=== PATIENT | male | born 1975 | race Caucasian/White ===

== ENCOUNTER 2018-05-31 11:07 | Emergency (ER) | payer OTHER ==
[2018-05-31] MEDS ORDERED: Sodium Chloride 0.9% 1000 ML 1,000 ML IV STA (11:34)
--- NOTE | 2018-05-31 11:40 | ERPHSYRPT ---
- History of Present Illness Time Seen by Provider: 05/31/18 11:36 Source: patient Patient Subjective Stated Complaint: abscess on left upper medial back of leg Triage Nursing Assessment: Pt c/o of an abscess on left upper medial thigh that began over a year ago but has now become larger and more painful, hx of abscesses, no drainage, has been taking antibiotics for past 3 months, BP 179/ 130, afebrile, denies any other issues at this time Physician History: 3 day hx sts left medial thigh mild tender, occasional drainage, no fever, ambulatory, hx 60 lb wt loss since November, no hx injury Allergies/Adverse Reactions: No Known Drug Allergies Allergy (Verified 05/31/18 11:29) Hx Tetanus, Diphtheria Vaccination/Date Given: No (unsure) - Review of Systems Constitutional: No Fever Eyes: No Eye Redness Ears, Nose, & Throat: No Nose Congestion Respiratory: No Dyspnea Cardiac: No Chest Pain Abdominal/Gastrointestinal: No Abdominal Pain, No Vomiting Genitourinary Symptoms: No Dysuria Musculoskeletal: No Back Pain Skin: Skin Lesions Neurological: No Dizziness - Past Medical History Pertinent Past Medical History: Yes Cardiac History: Hypertension - Past Surgical History Past Surgical History: No - Social History Smoking Status: Current every day smoker How long have you smoked: 10 years Drug Use: none Patient Lives Alone: No - Nursing Vital Signs Nursing Vital Signs: Initial Vital Signs Temperature 98.2 F 05/31/18 11:14 Pulse Rate 98 H 05/31/18 11:14 Blood Pressure 179/130 05/31/18 11:14 O2 Sat by Pulse Oximetry 97 05/31/18 11:14 Pain Scale Pain Intensity 7 - Physical Exam General Appearance: no apparent distress Eye Exam: eyes nml inspection Ears, Nose, Throat Exam: moist mucous membranes Neck Exam: normal inspection Respiratory Exam: No respiratory distress Cardiovascular Exam: regular rate/rhythm Gastrointestinal/Abdomen Exam: No tenderness Back Exam: normal range of motion Neurologic Exam: alert, oriented x 3, cooperative Skin Exam: warm, other (about 3cm sts medial prox left thigh, +fluc mass, no streaks, no drainage) SpO2 Interpretation: normal SpO2: 97 Oxygen Delivery: Room Air Procedures - Additional Procedures Progress: sterile prep, 1% local lidocaine, #11 blade to incise 3mm to drain 4cc pus by blunt dissection, dressing. - Course Nursing assessment & vital signs reviewed: Yes Ordered Tests: Active Orders 24 hr Category Date Time Status IV Insertion STAT Care 05/31/18 11:34 Active Nursing [Miscellaneous Nursing Order] ROUTINE Care 05/31/18 11:40 Active CBC W DIFF Stat Lab 05/31/18 11:47 Completed CMP Stat Lab 05/31/18 11:47 Completed Medication Summary Discontinued Medications Generic Name Dose Route Start Last Admin Trade Name Flavio PRN Reason Stop Dose Admin Clonidine 0.1 mg 05/31/18 12:04 05/31/18 12:11 Catapres 0.1 Mg PO 05/31/18 12:05 0.1 mg STAT ONE Administration Clonidine Confirm 05/31/18 12:09 Catapres 0.1 Mg Administered 05/31/18 12:10 Dose 0.1 mg .ROUTE .STK-MED ONE Sodium Chloride 1,000 mls @ 999 mls/hr 05/31/18 11:34 05/31/18 13:16 Sodium Chloride 0.9% 1000 Ml IV 05/31/18 12:34 Infused .Q1H1M STA Infusion Sodium Chloride Confirm 05/31/18 11:45 Sodium Chloride 0.9% 1000 Ml Administered 05/31/18 11:46 Dose 1,000 mls @ ud .ROUTE .STK-MED ONE Lidocaine HCl 10 ml 05/31/18 12:13 05/31/18 12:32 Xylocaine 1% Hcl 20 Ml Mdv IJ 05/31/18 12:14 10 ml STAT ONE Administration Lidocaine HCl Confirm 05/31/18 12:15 Xylocaine 1% Hcl 20 Ml Mdv Administered 05/31/18 12:16 Dose 1 ml .ROUTE .STK-MED ONE Trimethoprim/Sulfamethoxazole 1 tab 05/31/18 13:34 Bactrim Ds Tablet PO 05/31/18 13:35 STAT STA Lab/Rad Data: Laboratory Result Diagrams 05/31/18 11:47 05/31/18 11:47 Laboratory Results 05/31/18 05/31/18 Range/Units 11:47 11:47 WBC 8.3 (4.0-10.5) K/mm3 RBC 5.53 (4.1-5.6) M/mm3 Hgb 18.1 H (12.5-18.0) gm/dl Hct 51.7 H (42-50) % MCV 93.5 (78-100) fl MCH 32.7 H (26-32) pg MCHC 35.0 (32-36) g/dl RDW 13.0 (11.5-14.0) % Plt Count 222 (150-450) K/mm3 MPV 10.9 H (6-9.5) fl Gran % 59.3 (36.0-66.0) % Eos # (Auto) 0.10 (0-0.5) Absolute Lymphs (auto) 2.46 (1.0-4.6) Absolute Monos (auto) 0.77 (0.0-1.3) Lymphocytes % 29.8 (24.0-44.0) % Monocytes % 9.3 (0.0-12.0) % Eosinophils % 1.2 (0.00-5.0) % Basophils % 0.4 (0.0-0.4) % Absolute Granulocytes 4.90 (1.4-6.9) Basophils # 0.03 (0-0.4) Sodium 134 L (137-145) mmol/L Potassium 4.2 (3.5-5.1) mmol/L Chloride 99 (98-107) mmol/L Carbon Dioxide 20 L (22-30) mmol/L Anion Gap 18.8 H (5-15) MEQ/L BUN 10 (9-20) mg/dL Creatinine 0.84 (0.66-1.25) mg/dL Estimated GFR > 60.0 ML/MIN Glucose 327 H (74-106) mg/dL Calcium 9.9 (8.4-10.2) mg/dL Total Bilirubin 1.30 (0.2-1.3) mg/dL AST 24 (17-59) U/L ALT 26 (0-50) U/L Alkaline Phosphatase 178 H (38-126) U/L Serum Total Protein 8.7 H (6.3-8.2) g/dL Albumin 4.8 (3.5-5.0) g/dL - Progress Progress: improved Progress Note: 05/31/18 13:39 metformin, catapres, bactrim ds, wound care, see your doctor, return if worse, lisa Counseled pt/family regarding: lab results, diagnosis, need for follow-up - Departure Time of Disposition: 13:40 Departure Disposition: Home Clinical Impression: Hyperglycemia, Abscess Hypertension Qualifiers: Hypertension type: essential hypertension Qualified Code(s): I10 - Essential ( primary) hypertension Condition: Stable Critical Care Time: No Referrals: NOELLE LI [Primary Care Provider] - Instructions: Wound Infection Prescriptions: Clonidine HCl 0.1 mg [Catapres 0.1 MG] 0.1 mg PO DAILY 14 Days #14 tablet Metformin HCl 500 mg [Glucophage 500 MG] 500 mg PO BIDWM #14 tablet Smz/Tmp Ds Tablet [Bactrim Ds Tablet] 1 udtab PO BID #20 tablet
[2018-05-31] MEDS ORDERED: Sodium Chloride 0.9% 1000 ML 1,000 ML ONE (11:45)
[2018-05-31] MEDS ORDERED: Catapres 0.1 MG PO ONE (12:04)
[2018-05-31] MEDS ORDERED: Catapres 0.1 MG ONE (12:09)
[2018-05-31] MEDS ORDERED: XYLOCAINE 1% HCL 20 ML MDV IJ ONE (12:13)
[2018-05-31] MEDS ORDERED: XYLOCAINE 1% HCL 20 ML MDV ONE (12:15)
[2018-05-31 12:27] LABS: ALBUMIN 4.8 g/dL (3.5-5.0); ALKALINE PHOSPHATASE 178 U/L (38-126); ANION GAP 18.8 MEQ/L (5-15); BLOOD UREA NITROGEN 10 mg/dL (9-20); CHLORIDE 99 mmol/L (98-107); Calcium 9.9 mg/dL (8.4-10.2); Carbon Dioxide 20 mmol/L (22-30); Creatinine 1 0.84 mg/dL (0.66-1.25); Glucose 327 mg/dL (74-106); Potassium 4.2 mmol/L (3.5-5.1); SGOT/AST 24 U/L (17-59); SGPT/ALT 26 U/L (0-50); SODIUM 134 mmol/L (137-145); Total Protein 8.7 g/dL (6.3-8.2)
[2018-05-31 13:02] VITALS: BP 153/98; PULSE 89
[2018-05-31 13:20] LABS: BASOPHIL % 0.4 % (0.0-0.4); Basophil (Absolute #) 0.03 (0-0.4); Eosinophil % 1.2 % (0.00-5.0); Granulocytes % 59.3 % (36.0-66.0); Hematocrit 51.7 % (42-50); Hemoglobin 18.1 gm/dl (12.5-18.0); Lymphocyte (Absolute #) 2.46 (1.0-4.6); Lymphocytes % 29.8 % (24.0-44.0); Mean Cell Volume 93.5 fl (78-100); Mean Corpuscular Hemoglobin 32.7 pg (26-32); Mean Platelet Volume 10.9 fl (6-9.5); Monocyte (Absolute #) 0.77 (0.0-1.3); Monocytes % 9.3 % (0.0-12.0); Platelet Count 222 K/mm3 (150-450); Red Blood Count 5.53 M/mm3 (4.1-5.6); White Blood Count 8.3 K/mm3 (4.0-10.5)
[2018-05-31] MEDS ORDERED: BACTRIM DS TABLET PO STA (13:34)
[2018-05-31] MEDS ORDERED: BACTRIM DS TABLET PO ONE (13:38)
[2018-05-31 13:43] VITALS: O2SAT 97
== END 2018-05-31 13:58 | disposition home or self-care (01) ==
LOC: ED 11:07
DX: L02.416 Cutaneous abscess of left lower limb (principal); R73.9 Hyperglycemia, unspecified; I10 Essential (primary) hypertension
CPT/HCPCS: 10060; 36000; 36415; 80053; 85025; 96360; 96372; 99284; A9270-GY

== ENCOUNTER 2019-01-30 22:06 | Emergency (ER) | payer OTHER ==
[2019-01-30] MEDS ORDERED: EPINEPHRINE 1MG/ML AMP IM ONE (22:37)
[2019-01-30] MEDS ORDERED: solu-MEDROL 125 MG IV ONE (22:38)
[2019-01-30] MEDS ORDERED: solu-MEDROL 125 MG ONE (22:39)
[2019-01-30] MEDS ORDERED: EPINEPHRINE 1MG/ML AMP ONE (22:39)
--- NOTE | 2019-01-30 22:55 | ERPHSYRPT ---
- History of Present Illness Time Seen by Provider: 01/30/19 22:50 Source: patient Exam Limitations: no limitations Patient Subjective Stated Complaint: PT STATES HE HAD SUDDEN ONSET OF FACIAL SWELLING, TONGUE SWELLING AND REDNESS TO FACE/TORSO/ARMS 15-20 MIN IN [employer]. PT STATES HE HAS BEEN HAVING REOCCURING EPISODES OVER THE PAST FEW MONTHS, HAS NOT FOUND SOURCE OF REACTION, HAS NOT SEEN [employer]. PT STATES HE TOOK 50 MG OF BENADRYL IN [employer] Triage Nursing Assessment: FLUSHED/WARM/DRY, RESP EASY, A&OX4, STEADY GAIT, NO HOARSENESS OR SOB NOTED, PT DENIES DISCOMFORT IN THROAT, SWELLING TO FACE/LIPS, TONGUE, AND EYES NOTED. Physician History: 44-year-old white male coming in arrives with complaint of tongue swelling since approximately 20 minutes prior to arrival. According to patient he has been having intermittent tongue and face swelling off and on for the past 6 months. He apparently has been told not to take Advil secondary to this. He states that this evening at approximately 5:00 he took some Aleve. Then at around 20 minutes prior to arrival he began to have tongue swelling. Patient states that he felt like he was getting some hives on his neck. Is not having shortness of breath at this time. patient did take Benadryl 50 mg orally prior to arrival. Past medical history includes high blood pressure and diabetes mellitus. Past surgical history is negative. Timing/Duration: today (20 minutes prior to arrival) Severity: moderate Associated Symptoms: other (tongue swelling), No nausea, No vomiting, No abdominal pain, No shortness of breath, No heartburn, No diaphoresis, No cough, No chills, No chest pain, No fever, No headaches, No loss of appetite (ice chips ), No malaise, No rash (hives on his neck), No syncope, No seizure, No weakness Allergies/Adverse Reactions: No Known Drug Allergies Allergy (Verified 01/30/19 22:10) Hx Tetanus, Diphtheria Vaccination/Date Given: No (unsure) - Review of Systems Constitutional: No No Symptoms Eyes: No Symptoms Ears, Nose, & Throat: Mouth Swelling (tongue swelling), No Ear Pain, No Ear Discharge, No Hearing Changes, No Tinnitus, No Nose Pain, No Nose Congestion, No Nose Discharge, No Sinus Drainage, No Epistaxis, No Mouth Pain, No Loose Teeth, No Throat Pain, No Throat Swelling, No Hoarse, No Painful Swallowing, No Snoring, No Stridor Respiratory: No Cough, No Dyspnea Cardiac: No Chest Pain, No Edema, No Syncope Abdominal/Gastrointestinal: No Abdominal Pain, No Nausea, No Vomiting, No Diarrhea Genitourinary Symptoms: No Dysuria Musculoskeletal: No Back Pain, No Neck Pain Skin: Rash (hives on neck) Neurological: No Dizziness, No Focal Weakness, No Sensory Changes Psychological: No Symptoms Endocrine: No Symptoms All Other Systems: Reviewed and Negative - Past Medical History Pertinent Past Medical History: Yes Cardiac History: Hypertension Endocrine Medical History: Diabetes Type II - Past Surgical History Past Surgical History: No - Social History Smoking Status: Current every day smoker How long have you smoked: 10 years Exposure to second hand smoke: Yes Drug Use: marijuana Patient Lives Alone: No - Nursing Vital Signs Nursing Vital Signs: Initial Vital Signs Pulse Rate 103 H 01/30/19 22:12 Respiratory Rate 14 01/30/19 22:12 Blood Pressure 196/118 01/30/19 22:12 O2 Sat by Pulse Oximetry 97 01/30/19 22:12 Pain Scale Pain Intensity 0 - Physical Exam General Appearance: mild distress, alert, other (flushed in appearance) Eye Exam: PERRL/EOMI, eyes nml inspection Ears, Nose, Throat Exam: TMs normal, pharynx normal, other (tongue swollen) Neck Exam: normal inspection, non-tender, supple, full range of motion Respiratory Exam: normal breath sounds, lungs clear, No respiratory distress Cardiovascular Exam: regular rate/rhythm, normal heart sounds, normal peripheral pulses, capillary refill <2 sec Gastrointestinal/Abdomen Exam: soft, normal bowel sounds, No tenderness, No mass Back Exam: normal inspection, normal range of motion, No CVA tenderness, No vertebral tenderness Extremity Exam: normal inspection, normal range of motion, pelvis stable Neurologic Exam: alert, oriented x 3, cooperative, windows consultant II-XII nml as tested, normal mood/affect, nml cerebellar function, nml station & gait, sensation nml, No motor deficits Skin Exam: other (skin flushed in appearance) SpO2 Interpretation: normal (97%) SpO2: 97 - Course Nursing assessment & vital signs reviewed: Yes EKG Interpreted by Me: RATE (93 bpm), Sinus Rhythm, NORMAL AXIS (And), Other ( EKG: Sinus rhythm, 93 beats per minute, normal axis, no acute ST or T wave changes noted) Ordered Tests: Active Orders 24 hr Category Date Time Status Accucheck STAT Care 01/31/19 00:48 Active Medication Summary Generic Name Dose Route Start Last Admin Trade Name Flavio PRN Reason Stop Dose Admin Sodium Chloride 1,000 mls @ 100 mls/hr 01/30/19 23:45 01/30/19 23:39 Sodium Chloride 0.9% 1000 Ml IV 03/01/19 23:44 100 mls/hr .Q10H JOHN Administration Discontinued Medications Generic Name Dose Route Start Last Admin Trade Name Shadeq PRN Reason Stop Dose Admin Epinephrine HCl 0.3 mg 01/30/19 22:37 01/30/19 22:40 Epinephrine 1mg/Ml Amp IM 01/30/19 22:38 0.3 mg STAT ONE Administration Epinephrine HCl Confirm 01/30/19 22:39 Epinephrine 1mg/Ml Amp Administered 01/30/19 22:40 Dose 1 mg .ROUTE .STK-MED ONE Famotidine 20 mg 01/30/19 23:04 01/30/19 23:10 Pepcid 20 Mg Vial IV 01/30/19 23:05 20 mg STAT ONE Administration Famotidine Confirm 01/30/19 23:09 Pepcid 20 Mg Vial Administered 01/30/19 23:10 Dose 20 mg IV .STK-MED ONE Methylprednisolone Sodium Succinate 125 mg 01/30/19 22:38 01/30/19 22:40 Solu-Medrol 125 Mg IV 01/30/19 22:39 125 mg STAT ONE Administration Methylprednisolone Sodium Succinate Confirm 01/30/19 22:39 Solu-Medrol 125 Mg Administered 01/30/19 22:40 Dose 125 mg .ROUTE .STK-MED ONE - Progress Progress: improved Progress Note: 01/31/19 00:45 Patient markedly improved after epinephrine and Pepcid. Patient also received Solu-Medrol 125 mg IV. Markedly decreased in the tongue swelling. Patient is somewhat diaphoretic but now will check a Accu-Chek. Will plan on home Benadryl 50 mg orally every 6 hours. Tapering dose of steroids if patient is markedly improved tomorrow he can hold off on steroids (prednisone) Patient advised not to take any more nonsteroidal anti-inflammatory agents. Patient to followup with his family . Patient states he is not on any [place] inhibitors. 01/31/19 01:17 The patient's repeat accucheck is 220 will release. - Departure Departure Disposition: Home Clinical Impression: Allergic reaction Qualifiers: Encounter type: initial encounter Qualified Code(s): T78.40XA - Allergy, unspecified, initial encounter Angioedema Qualifiers: Encounter type: initial encounter Qualified Code(s): T78.3XXA - Angioneurotic edema, initial encounter Condition: Fair Critical Care Time: No Referrals: NOELLE LI [Primary Care Provider] - Additional Instructions: Return home. Benadryl 50 mg orally every 6 hours. Monitor your blood sugars. Tapering dose of prednisone as directed if markedly improved you do not need to start this tomorrow but he must take the Benadryl every 6 hours for 2-3 days. Plenty of fluids. Followup with your family . Do not take any more nonsteroidal anti-inflammatory drugs. Return for any problems or recurrence of symptoms.
[2019-01-30] MEDS ORDERED: Pepcid 20 MG VIAL IV ONE ×2 (23:04→23:09)
[2019-01-30] MEDS ORDERED: Sodium Chloride 0.9% 1000 ML 1,000 ML ONE (23:38)
[2019-01-30] MEDS ORDERED: Sodium Chloride 0.9% 1000 ML 1,000 ML IV SCH (23:45)
[2019-01-31 01:21] VITALS: BP 150/74; PULSE 92; O2SAT 95
== END 2019-01-31 01:41 | disposition home or self-care (01) ==
LOC: ED 22:06
DX: T78.40XA Allergy, unspecified, initial encounter (principal); T78.3XXA Angioneurotic edema, initial encounter
CPT/HCPCS: 36000; 82962; 96360; 96372; 96374; 96375; 99284; J0171; J2930

== ENCOUNTER 2020-06-23 08:20 | Emergency (ER) | payer OTHER ==
[2020-06-23 08:31] VITALS: BP 192/116; PULSE 109; O2SAT 98
[2020-06-23] MEDS ORDERED: PEN-VEE K PO ONE (08:40)
[2020-06-23] MEDS ORDERED: TYLENOL 325 MG PO ONE (08:40)
--- NOTE | 2020-06-23 08:43 | ERPHSYRPT ---
- History of Present Illness Time Seen by Provider: 06/23/20 08:30 Source: patient Exam Limitations: no limitations Patient Subjective Stated Complaint: pt here for tumbness and pain to right jaw for a week now, he is not sure if in is a tooth Triage Nursing Assessment: pt alert, walked in, face mask in place, resp easy, skin w/d/p. Physician History: Patient is a 45-year-old male presents to our ED with complaints of abdominal pain. Pain started approximately 1 week ago. Pain started off as an ache to the maxillary tooth #2. The tooth has excessive motion. Patient has yet to see a dentist. The pain tends to radiate to his cheek. He describes a dull ache at the site of the tooth and a numbness sensation adjacent to his right cheek. No trauma. No fever. No nausea or vomiting. No headache. Pain described as an ache that is localized. No radiation. Symptoms reproduced with percussion to the involved tooth. The adjacent gingiva is red irritated and swollen. Patient voices no other complaints or concerns at this time. Timing/Duration: week(s) (1 week) Severity: moderate Modifying Factors: Improves With: eating Associated Symptoms: No nausea, No vomiting, No chest pain, No syncope Allergies/Adverse Reactions: ibuprofen [From Motrin] Allergy (Verified 06/23/20 08:31) Home Medications: Loratadine 10 mg [Claritin 10 mg] 1 ea DAILY 06/23/20 [History] Hx Tetanus, Diphtheria Vaccination/Date Given: No Hx Influenza Vaccination/Date Given: No Hx Pneumococcal Vaccination/Date Given: No Immunizations Up to Date: Yes Travel Risk - International Travel Have you traveled outside of the country in past 3 weeks: No - Coronavirus Screening Are you exhibiting any of the following symptoms?: No Close contact with a COVID-19 positive Pt in past 14-21 Days: Yes - Review of Systems Constitutional: No Symptoms, No Fever, No Chills Eyes: No Symptoms Ears, Nose, & Throat: No Symptoms Respiratory: No Symptoms, No Cough, No Dyspnea Cardiac: No Symptoms, No Chest Pain, No Edema, No Syncope Abdominal/Gastrointestinal: No Symptoms, No Abdominal Pain, No Nausea, No Vomiting, No Diarrhea Genitourinary Symptoms: No Symptoms, No Dysuria Musculoskeletal: No Symptoms, No Back Pain, No Neck Pain Skin: No Symptoms, No Rash Neurological: No Symptoms, No Dizziness, No Focal Weakness, No Sensory Changes Psychological: No Symptoms Endocrine: No Symptoms Hematologic/Lymphatic: No Symptoms Immunological/Allergic: No Symptoms All Other Systems: Reviewed and Negative - Past Medical History Pertinent Past Medical History: Yes Cardiac History: Hypertension Endocrine Medical History: Diabetes Type II - Past Surgical History Past Surgical History: No - Social History Smoking Status: Current every day smoker How long have you smoked: 10 years Exposure to second hand smoke: Yes Drug Use: marijuana Patient Lives Alone: No - Nursing Vital Signs Nursing Vital Signs: Initial Vital Signs Temperature 97.0 F 06/23/20 08:24 Pulse Rate 109 H 06/23/20 08:24 Respiratory Rate 16 06/23/20 08:24 Blood Pressure 192/116 06/23/20 08:24 O2 Sat by Pulse Oximetry 98 06/23/20 08:24 Pain Scale Pain Intensity 0 - Physical Exam General Appearance: no apparent distress, alert Eye Exam: PERRL/EOMI, eyes nml inspection Ears, Nose, Throat Exam: normal ENT inspection, TMs normal, pharynx normal, moist mucous membranes, other (Tooth #2 is loose. Movement reproduces symptoms. The gingiva adjacent to the tooth is swollen and erythematous. No drainage. No facial swelling. Oropharyngeal exam otherwise within normal limits.) Neck Exam: normal inspection, non-tender, supple, full range of motion Respiratory Exam: normal breath sounds, lungs clear, No respiratory distress Cardiovascular Exam: regular rate/rhythm, normal heart sounds, normal peripheral pulses Gastrointestinal/Abdomen Exam: soft, normal bowel sounds, No tenderness, No mass Back Exam: normal inspection, normal range of motion, No CVA tenderness, No vertebral tenderness Extremity Exam: normal inspection, normal range of motion, pelvis stable Neurologic Exam: alert, oriented x 3, cooperative, normal mood/affect, nml cerebellar function, nml station & gait, sensation nml, No motor deficits Skin Exam: normal color, warm, dry, No rash Lymphatic Exam: No adenopathy SpO2 Interpretation: normal SpO2: 98 O2 Delivery: Room Air - Course Nursing assessment & vital signs reviewed: Yes Ordered Tests: Medication Summary Discontinued Medications Generic Name Dose Route Start Last Admin Trade Name Freq PRN Reason Stop Dose Admin Acetaminophen 975 mg 06/23/20 08:40 Tylenol 325 Mg PO 06/23/20 08:41 STAT ONE Penicillin V Potassium 500 mg 06/23/20 08:40 Pen-Vee K PO 06/23/20 08:41 STAT ONE - Progress Progress: improved Progress Note: 06/23/20 08:48 Patient received pain medication. Antibiotics provided. Prescription for the same was forwarded the patient's pharmacy. Patient given a dentist referral. Plan of care discussed with patient. He agrees to follow-up with his dentist within 48 hours for reevaluation. Patient voices no other complaints concerns at this time. 06/23/20 08:51 Counseled pt/family regarding: diagnosis, need for follow-up - Departure Departure Disposition: Home Clinical Impression: Subluxation of tooth, Pain, dental, Dental abscess Condition: Stable Critical Care Time: No Referrals: NOELLE LI [Primary Care Provider] - Instructions: Dental Pain (DC) Prescriptions: Penicillin V Potassium 500 mg PO QID 7 Days #28 tablet
[2020-06-23] MEDS ORDERED: TYLENOL 325 MG ONE (08:46)
[2020-06-23] MEDS ORDERED: PEN-VEE K ONE ×2 (08:46→08:47)
== END 2020-06-23 08:56 | disposition home or self-care (01) ==
LOC: ED 08:20
DX: S03.2XXA Dislocation of tooth, initial encounter (principal); K08.89 Other specified disorders of teeth and supporting structures; K04.7 Periapical abscess without sinus
CPT/HCPCS: 99283; A9270-GY

== ENCOUNTER 2021-10-31 10:38 | Emergency (ER) | payer OTHER, SELFPAY ==
[2021-10-31] MEDS ORDERED: CORTISPORIN EAR DROPS 10 ML SUSPENSION OT ONE (10:45)
[2021-10-31] MEDS ORDERED: Rocephin 1000 MG INJ IM ONE (10:53)
[2021-10-31] MEDS ORDERED: solu-MEDROL 125 MG, Sterile H2O 10 ml 2 ML IM ONE ×2 (10:54)
[2021-10-31] MEDS ORDERED: Hydromorphone 1 mg/ml Injection IV ONE (10:55)
[2021-10-31] MEDS ORDERED: Rocephin 1000 MG INJ ONE (10:58)
[2021-10-31] MEDS ORDERED: Hydromorphone 1 mg/ml Injection ONE (10:58)
[2021-10-31] MEDS ORDERED: solu-MEDROL ONE (10:58)
[2021-10-31] MEDS ORDERED: XYLOCAINE 1% HCL 20 ML MDV ONE (10:58)
[2021-10-31] MEDS ORDERED: Sterile H2O 10 ml IJ ONE (10:59)
--- NOTE | 2021-10-31 11:01 | ERPHSYRPT ---
- History of Present Illness Time Seen by Provider: 10/31/21 10:55 Source: patient Exam Limitations: no limitations Physician History: Patient is a 46-year-old white male who has a history of previous otitis externa who is been on vacation and had been swimming a lot. He developed pain in the right ear followed by more pain and swelling around the right ear he was when [facility] and diagnosed with a parotid gland infection and started on Augmentin. He has swelling behind the ear and in front of the ear primarily. Pain is been so severe he cannot sleep for 2 nights and he has not responded to 24 hours worth of Augmentin. Timing/Duration: gradual onset, persistent Severity: severe ENT Location: ear (R) Prearrival Treatment: prescription meds (Augmentin 875) Modifying Factors: Improves With: nothing Associated Symptoms: ear pain (R), facial pain/swelling, hearing loss, swollen glands Allergies/Adverse Reactions: ibuprofen [From Motrin] Allergy (Verified 06/23/20 08:31) Home Medications: Loratadine 10 mg [Claritin 10 mg] 1 ea DAILY 06/23/20 [History] Benazepril HCl 10 mg [Lotensin 10 MG] 10 mg PO DAILY 10/31/21 [History] Simvastatin 10 mg [Zocor 10MG] 10 mg PO DAILY 10/31/21 [History] Hx Tetanus, Diphtheria Vaccination/Date Given: No Hx Influenza Vaccination/Date Given: No Hx Pneumococcal Vaccination/Date Given: No - Review of Systems Constitutional: No Fever, No Chills Eyes: No Symptoms Ears, Nose, & Throat: Ear Pain Respiratory: No Cough, No Dyspnea Cardiac: No Chest Pain, No Edema, No Syncope Abdominal/Gastrointestinal: No Abdominal Pain, No Nausea, No Vomiting, No D iarrhea Genitourinary Symptoms: No Dysuria Musculoskeletal: No Back Pain, No Neck Pain Skin: No Rash Neurological: No Dizziness, No Focal Weakness, No Sensory Changes Psychological: No Symptoms Endocrine: No Symptoms All Other Systems: Reviewed and Negative - Past Medical History Pertinent Past Medical History: Yes Cardiac History: Hypertension Endocrine Medical History: Diabetes Type II - Past Surgical History Past Surgical History: No - Social History Smoking Status: Current every day smoker How long have you smoked: 10 years Exposure to second hand smoke: Yes Drug Use: marijuana Patient Lives Alone: No - Physical Exam General Appearance: moderate distress, alert Eye Exam: bilateral eye: PERRL, EOMI Ear Exam: right ear: tenderness (Tenderness of the right tragus with swelling of the canal.), other (Preauricular and postauricular and cervical nodes enlarge d.) Nasal Exam: normal inspection Throat Exam: pharynx normal, moist mucus membranes, No tonsillar exudate Neck Exam: supple Cardiovascular/Respiratory Exam: normal breath sounds, regular rate/rhythm Abdominal Exam: non-tender, soft Neurologic Exam: alert, oriented x 3, sensation nml, No motor deficits Skin Exam: normal color, warm, dry SpO2 Interpretation: normal O2 Delivery: Room Air - Course Nursing assessment & vital signs reviewed: Yes Ordered Tests: Medication Summary Generic Name Dose Route Start Last Admin Trade Name Freq PRN Reason Stop Dose Admin Ceftriaxone Sodium 1,000 mg 10/31/21 10:53 Ceftriaxone Sodium 1000 Mg Inj Vial IM 10/31/21 10:54 STAT ONE Methylprednisolone Sodium 0 mg 10/31/21 10:54 Succinate 125 mg/ Sterile IM 10/31/21 10:55 Water 2 ml STAT ONE Neomycin/Polymyxin/Hydrocortisone 10 ml 11/01/21 10:00 10/31/21 10:47 Neomy Sulf/Polymyx B Sulf/Hc 10 Ml Otic Suspension OT 12/01/21 09:59 10 ml DAILY JOHN Administration Discontinued Medications Generic Name Dose Route Start Last Admin Trade Name Freq PRN Reason Stop Dose Admin Neomycin/Polymyxin/Hydrocortisone Confirm 10/31/21 10:45 Neomy Sulf/Polymyx B Sulf/Hc 10 Ml Otic Suspension Administered 10/31/21 10:46 Dose 10 ml OT .STK-MED ONE - Progress Progress: unchanged - Departure Departure Disposition: Home Clinical Impression: Right otitis externa Condition: Stable Critical Care Time: No Referrals: NOELLE LI [Primary Care Provider] - Follow up/PCP as directed Instructions: Outer Ear Infection (DC) Prescriptions: Prednisone 10 mg [Deltasone 10 mg] 20 mg PO TID 2 Days #12 tablet Hydrocodone/Acetaminophen [Hydrocodone-Acetamin 5-325 mg] 1 tab PO Q4H PRN 3 Days #18 tablet MDD 4 PRN Reason: Pain
[2021-10-31 11:19] VITALS: BP 169/94; PULSE 98; O2SAT 95
[2021-11-01] MEDS ORDERED: CORTISPORIN EAR DROPS 10 ML SUSPENSION OT SCH (10:00)
== END 2021-10-31 11:30 | disposition home or self-care (01) ==
LOC: ED 10:38
DX: H60.91 Unspecified otitis externa, right ear (principal); H92.01 Otalgia, right ear; R22.0 Localized swelling, mass and lump, head; I10 Essential (primary) hypertension; E11.9 Type 2 diabetes mellitus without complications; Z72.0 Tobacco use; Z79.891 Long term (current) use of opiate analgesic; Z79.52 Long term (current) use of systemic steroids; Z79.899 Other long term (current) drug therapy
CPT/HCPCS: 96372; 99284; J0696; J1170; J2930; A9270-GY

== ENCOUNTER 2024-01-16 17:48 | Emergency (ER) | payer OTHER ==
--- NOTE | 2024-01-16 18:03 | ERPHSYRPT ---
- History of Present Illness Time Seen by Provider: 01/16/24 18:03 Source: patient Exam Limitations: no limitations Physician History: The patient, with a history of recurrent skin abscesses, presents with a new abscess that appeared about three weeks ago on the inside of his left thigh. Initially, the abscess was small and then disappeared, but it reappeared and has progressively worsened since last Tuesday. The patient has previously managed similar abscesses by incision and drainage. The patient attempted to alleviate the abscess with a hot tub soak but to no avail. Timing/Duration: week(s) (3), gradual onset, worse Quality: painful Severity: severe Location: extremities (left medial thigh) Possible Causes: no cause identified Associated Symptoms: No fever Allergies/Adverse Reactions: ibuprofen [From Motrin] Allergy (Verified 01/16/24 18:02) Home Medications: Loratadine 10 mg [Claritin 10 mg] 1 ea DAILY 06/23/20 [History] Benazepril HCl [Lotensin 10 MG] 10 mg PO DAILY 10/31/21 [History] Simvastatin 10 mg [Zocor 10MG] 10 mg PO DAILY 10/31/21 [History] Hx Tetanus, Diphtheria Vaccination/Date Given: No Hx Influenza Vaccination/Date Given: No Hx Pneumococcal Vaccination/Date Given: No - Review of Systems All Other Systems: Reviewed and Negative - Past Medical History Pertinent Past Medical History: Yes Cardiac History: Hypertension Endocrine Medical History: Diabetes Type II - Past Surgical History Past Surgical History: No - Social History Smoking Status: Current every day smoker How long have you smoked: 10 years Exposure to second hand smoke: Yes Drug Use: marijuana Patient Lives Alone: No - Nursing Vital Signs Nursing Vital Signs: Initial Vital Signs Temperature 98.2 F 01/16/24 18:03 Pulse Rate 86 01/16/24 18:03 Respiratory Rate 18 01/16/24 18:03 Blood Pressure 153/104 01/16/24 18:03 O2 Sat by Pulse Oximetry 98 01/16/24 18:03 Pain Scale Pain Intensity 0 - Physical Exam General Appearance: mild distress Skin Exam: other (5x5cm firm mass, erythema, TTP, no active drainage) SpO2 Interpretation: normal O2 Delivery: Room Air Procedures - Incision and Drainage Time of Procedure: 18:10 Timeout: Performed Site: left medial thigh Anesthesia: 1% Lidocaine cc's of anesthesia: 5 Blade Size: 11 I & D Procedure: betadine prep, sterile drapes applied, culture obtained Results: large amount pus - Course Nursing assessment & vital signs reviewed: Yes Ordered Tests: Medication Summary Discontinued Medications Generic Name Dose Route Start Last Admin Trade Name Freq PRN Reason Stop Dose Admin Hydrocodone Bitart/Acetaminophen 1 tab 01/16/24 18:23 01/16/24 18:30 Hydrocodone/Apap 5/325 1 Tab Tablet PO 01/16/24 18:24 1 tab STAT ONE Administration Hydrocodone Bitart/Acetaminophen Confirm 01/16/24 18:28 Hydrocodone/Apap 5/325 1 Tab Tablet Administered 01/16/24 18:29 Dose 1 tab .ROUTE .STK-MED ONE Doxycycline Hyclate 100 mg 01/16/24 18:24 01/16/24 18:30 Doxycycline Hyclate 100 Mg Tablet PO 01/16/24 18:25 100 mg STAT ONE Administration Doxycycline Hyclate Confirm 01/16/24 18:28 Doxycycline Hyclate 100 Mg Tablet Administered 01/16/24 18:29 Dose 100 mg .ROUTE .STK-MED ONE Lidocaine HCl 5 ml 01/16/24 19:08 01/16/24 18:20 Lidocaine Hcl 1% 20 Ml Mdv 20 Ml Ml IJ 01/16/24 19:09 5 ml STAT ONE Administration - Progress Progress: improved Counseled pt/family regarding: diagnosis Medical Desision Making - Diagnostic Testing Diagnostic test were ordered, analyzed, and reviewed by me: No - Risk of complications The pt has a mod risk of morbidity or mortality based on: Need for prescription drug management - Departure Departure Disposition: Home Clinical Impression: Abscess Condition: Good Critical Care Time: No Referrals: DEBRA MCKAY NP [Primary Care Provider] - Follow up/PCP as directed Instructions: MRSA (DC) Prescriptions: Hydrocodone/Acetaminophen [Hydrocodone-Acetamin 5-325 mg] 1 tab PO Q6HPRN PRN 3 Days #12 tablet MDD 4 PRN Reason: Pain Doxycycline Hyclate 100 mg PO BID 7 Days #14 tablet
[2024-01-16 18:07] VITALS: TEMP 98.2; O2SAT 98
[2024-01-16] MEDS: XYLOCAINE 1% HCL 20 ML MDV IJ ONE (18:20)
[2024-01-16] MEDS ORDERED: NORCO 5/325 MG ONE (18:28)
[2024-01-16] MEDS ORDERED: Vibramycin 100 MG ONE (18:28)
[2024-01-16] MEDS: Vibramycin 100 MG PO ONE (18:30)
[2024-01-16] MEDS: NORCO 5/325 MG PO ONE (18:30)
[2024-01-16 18:38] VITALS: BP 150/99; PULSE 87; RESP 20
== END 2024-01-16 18:44 | disposition home or self-care (01) ==
LOC: ED 17:48
DX: L02.416 Cutaneous abscess of left lower limb (principal); I10 Essential (primary) hypertension; E11.9 Type 2 diabetes mellitus without complications; Z79.891 Long term (current) use of opiate analgesic; Z79.899 Other long term (current) drug therapy; Z72.0 Tobacco use
CPT/HCPCS: 10060; 87070; 96372; 99283; A9270-GY